=== PATIENT | male | born 1985 ===

== ENCOUNTER 2017-03-13 12:53 | Emergency (ER) | payer MEDICAID, OTHER ==
[2017-03-13 13:04] VITALS: BP 133/74; PULSE 74; RESP 18; TEMP 98.4; O2SAT 99
--- NOTE | 2017-03-13 14:03 | ED PDOC ---
HPI: Abdomen Time Seen by Provider: 03/13/17 13:43 Chief Complaint (Nursing): Abdominal Pain Chief Complaint (Provider): Umbilical swelling History Per: Patient History/Exam Limitations: no limitations Outside of [place] travel?: No Current Symptoms Are (Timing): Intermittent Episodes Associated Symptoms: denies: Fever, Chills, Nausea, Vomiting, Diarrhea, Loss Of Appetite, Back Pain, Chest Pain, Constipation, Urinary Symptoms Exacerbating Factors: Cough Alleviating Factors: None Last Bowel Movement: Today Additional Complaint(s): 31 year old male with no past medical history presents to ED with complaint of abdominal swelling that was present in 2012 and worsened this past year. Patient states intermittent episodes of pain. It is located in belly button ( umbilical) area. Denies skin changes of area or any recent changes of area. Last BM today. Patient also states intermittent episodes of reflux. Denies melena, brbpr, chest pain, sob, dysuria, hematuria, or flank pain. No fever, chills. No nausea/vomiting. Tolerating PO well. PMD: None Past Medical History Reviewed: Historical Data, Nursing Documentation, Vital Signs Vital Signs: Last Vital Signs Temp 98.4 F 03/13/17 13:02 Pulse 74 03/13/17 13:02 Resp 18 03/13/17 13:02 BP 133/74 03/13/17 13:02 Pulse Ox 99 03/13/17 14:10 - Surgical History Surgical History: No Surg Hx - Family History Family History: States: Unknown Family Hx - Living Arrangements Living Arrangements: Alone - Social History Current smoker - smoking cessation education provided: Yes Alcohol: Occasional Drugs: Denies - Immunization History Hx Tetanus Toxoid Vaccination: No Hx Influenza Vaccination: No Hx Pneumococcal Vaccination: No - Home Medications Home Medications: Ambulatory Orders Medication Instructions Recorded traMADol [Ultram] 50 mg PO Q8 #10 tab 03/13/17 - Allergies Allergies/Adverse Reactions: Allergies Allergy/AdvReac Type Severity Reaction Status Date / Time No Known Allergies Allergy Unverified 11/21/13 17:11 Review of Systems ROS Statement: Except As Marked, All Systems Reviewed And Found Negative Gastrointestinal: Positive for: Abdominal Pain Physical Exam - Reviewed Nursing Documentation Reviewed: Yes Vital Signs Reviewed: Yes - Physical Exam Appears: Positive for: Well, Non-toxic, No Acute Distress Head Exam: Positive for: ATRAUMATIC, NORMAL INSPECTION, NORMOCEPHALIC Skin: Positive for: Normal Color, Warm, Dry Eye Exam: Positive for: Normal appearance, EOMI Neck: Positive for: Normal, Painless ROM, Supple Cardiovascular/Chest: Positive for: Regular Rate, Rhythm Respiratory: Positive for: Normal Breath Sounds Gastrointestinal/Abdominal: Positive for: Bowel Sounds (present, normal), Soft, Hernia (umbilical hernia, reducible, without pain on palpation or any obvious skin abnormalities). Negative for: Tenderness, Organomegaly, Mass, Distended, Guarding, Rebound, Asicites Back: Positive for: Normal Inspection Extremity: Positive for: Normal ROM. Negative for: Tenderness, Pedal Edema Neurologic/Psych: Positive for: Alert, Oriented - ECG O2 Sat by Pulse Oximetry: 99 Pulse Ox Interpretation: Normal - Progress ED Course And Treament: Time: 1400 Initial Impression: 31 year old with reducible, non-incarcerated umbilical hernia. Plan: * Discussed hernia implications and ED precautions including signs of incarceration. * Patient to be discharged home with Tramadol PRN pain and follow up with Dr. Duffy (General Surgery) for follow up. Disposition - Clinical Impression Clinical Impression: Umbilical hernia - Patient ED Disposition Is Patient to be Admitted: No Counseled Patient/Family Regarding: Diagnosis, Need For Followup, Rx Given, Smoking Cessation - Disposition Referrals: Saul Duffy MD [Staff Provider] - Disposition: Routine/Home Disposition Time: 14:13 Condition: STABLE Prescriptions: traMADol [Ultram] 50 mg PO Q8 #10 tab Instructions: Umbilical Hernia (ED)
== END 2017-03-13 14:22 | disposition home or self-care (01) ==
LOC: H.ER 12:53
DX: K42.9 Umbilical hernia without obstruction or gangrene (principal)